=== PATIENT | male | born 1980 | race Hispanic/Latino ===

== ENCOUNTER 2019-10-03 19:56 | Emergency (ER) | payer OTHER ==
[2019-10-03] MEDS ORDERED: LIDOCAINE 5% TOPICAL PATCH TP ONE (20:33)
[2019-10-03] MEDS ORDERED: KETOROLAC TROMETHAMINE 60 MG/2 ML VIAL ONE (20:33)
== END 2019-10-03 21:04 | disposition home or self-care (01) ==
LOC: EDH 19:56
DX: S23.3XXA Sprain of ligaments of thoracic spine, initial encounter (principal); Z98.890 Other specified postprocedural states; X58.XXXA Exposure to other specified factors, initial encounter; Y93.89 Activity, other specified; Y92.89 Other specified places as the place of occurrence of the external cause; Y99.8 Other external cause status
CPT/HCPCS: 96372; 99283; J1885